=== PATIENT | male | born 1970 | race Caucasian/White ===

== ENCOUNTER 2016-12-27 07:27 | Emergency (ER) | payer MEDICARE ==
[~2016-12-27 07:27] MED LIST: ALDACTONE50 M1 PO; ASPIR 8181 MG PO; DEPAKOTE250 M1 PO; FLEXERIL 10MG PO; IMDUR30 MG PO; LASIX80 M1 PO; METOPROLOL TARTRATE PO; NORCO 5-325 TA1 EACH PO; NORCO 5/325 TAB1 TAB PO; NORCO 7.5-3251 EACH PO; PENICILLIN V P500 M1 PO; SIMVASTATIN20 M1 PO; ZESTRIL2.5 M2 PO; ZOCOR PO
[2016-12-27] MEDS ORDERED: COREG6.25 M1 PO (07:31)
[2016-12-27] MEDS ORDERED: ATORVASTATIN CA10 M1 PO (07:32)
[2016-12-27] MEDS ORDERED: NORCO 5-325 TA1 EACH PO (08:02)
== END 2016-12-27 08:25 ==
LOC: EDMED 07:27
DX: M25.531 Pain in right wrist (principal); G89.29 Other chronic pain; I25.10 Atherosclerotic heart disease of native coronary artery without angina pectoris; I10 Essential (primary) hypertension; J44.9 Chronic obstructive pulmonary disease, unspecified; Z95.5 Presence of coronary angioplasty implant and graft; Z87.891 Personal history of nicotine dependence; Z79.82 Long term (current) use of aspirin; Z98.890 Other specified postprocedural states; Z79.899 Other long term (current) drug therapy

== ENCOUNTER 2017-01-02 14:26 | Emergency (ER) | payer MEDICARE ==
[~2017-01-02 14:26] MED LIST changes: +ATORVASTATIN CA10 M1 PO; +COREG6.25 M1 PO
[2017-01-02] MEDS ORDERED: PROZAC40 M1 PO (14:52)
[2017-01-02] MEDS ORDERED: OMEPRAZOLE20 M4 PO (14:52)
[2017-01-02] MEDS ORDERED: ABILIFY5 M1 PO (14:53)
[2017-01-02 15:43] LABS: BASO % 0.8 % (0-2); BASO ABSOLUTE COUNT 0.1 tho/cmm (0.0-0.2); EOSINOPHIL ABSOLUTE COUNT 0.8 tho/cmm (0.0-0.7); HCT-HEMATOCRIT 32.2 % (36.0-53.5); HGB-HEMOGLOBIN 10.1 gm/dl (13.5-17.0); IMMATURE GRANULOCYTES ABSOLUTE 0.01 tho/cmm (0-0.03); IMMATURE GRANULOCYTES PERCENT 0.1 % (0-0.3); LYMPH % 27.8 % (20-45); LYMPH ABSOLUTE COUNT 2.1 tho/cmm (0.8-4.5); MCH (MEAN CORPUSCULAR HGB) 27.7 pg (28.0-32.0); MCHC MEAN CORPUSCULAR HGB CONC 31.4 % (32.0-36.0); MCV (MEAN CELL VOLUME) 88.2 fl (82.0-96.0); MEAN PLATELET VOLUME 9.3 cmc (9.4-12.4); MONO % 8.6 % (0-12); MONOCYTE ABSOLUTE COUNT 0.6 tho/cmm (0.0-1.2); NEUTROPHIL ABSOLUTE COUNT 3.8 tho/cmm (1.6-8.0); NEUTROPHIL-AUTOMATED 3.8 tho/cmm (1.6-8.0); NEUTROPHILS % 51.7 % (40-80); PLATELET COUNT 230 tho/cmm (150-450); RED BLOOD COUNT 3.65 mil/cmm (4.40-5.70); RED CELL DISTRIBUTION WIDTH 15.7 % (12.4-16.4); WHITE BLOOD COUNT 7.4 tho/cmm (4.0-10.0)
[2017-01-02 15:49] LABS: INR 1.2 INR (0.9-1.1); PROTHROMBIN TIME 14.6 SECONDS (9.0-13.6)
[2017-01-02 16:01] LABS: ALB/GLOB RATIO 0.8 (0.8-2.0); ALKALINE PHOSPHATASE 67 U/L (33-138); ALT/SGPT 18 U/L (12-78); ANION GAP 17 mmol/L (0-20); AST/SGOT 19 U/L (10-40); BILIRUBIN,TOTAL 0.2 mg/dl (0.0-1.5); BLOOD UREA NITROGEN 15 mg/dl (6-24); CALCIUM 8.8 mg/dl (8.5-10.5); CARBON DIOXIDE-VENOUS 22 mmol/L (22-32); CHLORIDE 111 mmol/l (96-110); CREATININE 0.94 mg/dl (0.60-1.30); GLUCOSE 92 mg/dL (70-110); LIPASE 103 U/L (73-393); POTASSIUM 4.1 mmol/L (3.7-5.1); SODIUM 146 mmol/L (135-145); eGFR VALUE FOR BLACK >90 mL/Min
[2017-01-02] MEDS ORDERED: NORCO 5/3251 TAB PO (17:09)
== END 2017-01-02 17:19 ==
LOC: EDMED 14:26
PROVIDERS: Emergency Medicine
DX: R10.11 Right upper quadrant pain (principal); E87.0 Hyperosmolality and hypernatremia; R79.1 Abnormal coagulation profile; I11.0 Hypertensive heart disease with heart failure; I50.9 Heart failure, unspecified; E78.5 Hyperlipidemia, unspecified; F17.210 Nicotine dependence, cigarettes, uncomplicated; Z90.49 Acquired absence of other specified parts of digestive tract; Z79.01 Long term (current) use of anticoagulants; Z79.82 Long term (current) use of aspirin
CPT/HCPCS: J1170; Q9967